=== PATIENT | male | born 1940 | race Caucasian/White ===

== ENCOUNTER 2017-03-04 13:16 | Inpatient (IN) | payer MEDICARE, BC ==
--- NOTE | ~2017-03-04 | CN ---
Consultation Report [facility] [address] [place]. [address] NAME: ROSIE GE : 42 STATUS : ADM IN [facility]#: [id number] AGE: 76 ADM/REG DATE : 03/05/17 MR#: [id number] REPORT SERV DATE: 03/06/17 DICTATED BY: ELEAZAR SANDHU DATE: 03/06/17 REPORT STATUS : Draft TRANSCRIBED BY: MODL DATE: 03/06/17 CARDIOLOGY CONSULTATION DATE OF CONSULTATION: 03/06/2017 INDICATION: 76-year-old male with exertional shortness of breath and abnormal stress test. HISTORY OF ILLNESS: Mr. Ge is a 76-year-old male with hypertension, hyperlipidemia, and history of tobacco use, who presented to the ER with increasing exertional shortness of breath and activity intolerance. He has had no angina. He has noticed some wheezing and a nonproductive cough. On arrival to the ER, he was noted to have some mild lower extremity edema. An echo was unremarkable with EF of 60%. He received diuresis and feels much improved. He underwent a nuclear stress test which demonstrated activity-induced exertional shortness of breath that was activity limiting with EKG changes suggestive of ischemia and inferior ischemia on myocardial perfusion imaging, intermediate risk. He is currently resting comfortably with no recurrent symptoms. REVIEW OF SYSTEMS: He denies palpitations or syncope. He has had no orthopnea/PND. He has a good appetite and stable weight. All others are negative. PAST MEDICAL HISTORY: 1. Hypertension. 2. Hyperlipidemia. 3. History of tobacco use, quit in 1991. 4. BPH. 5. Mild cognitive impairment. MEDICATIONS: 1. Valsartan/HCTZ 320/25 mg daily. 2. Flomax 0.4 mg daily. 3. Metoprolol-XL 50 mg daily. 4. Pravastatin 80 mg daily. 5. Aspirin 81 mg daily. 6. Aricept 10 mg at bedtime. 7. Proscar 5 mg daily. 8. Flonase nasal spray. ALLERGIES: INCLUDE PENICILLIN, WHICH CAUSES A RASH AND ITCHING. SOCIAL HISTORY: He is retired. He has a history of tobacco use and quit in 1991. He does not consume alcohol or use illegal drugs. FAMILY HISTORY: There is no significant premature CAD, cardiomyopathy, or sudden . Consultation Report [facility] [address] [place]. [address] NAME: ROSIE GE : 42 STATUS : ADM IN PAT#: [id number] AGE: 76 ADM/REG DATE : 03/05/17 MR#: [id number] REPORT SERV DATE: 03/06/17 DICTATED BY: ELEAZAR SANDHU DATE: 03/06/17 REPORT STATUS : Draft TRANSCRIBED BY: MODAdeola DATE: 03/06/17 PHYSICAL EXAMINATION: VITALS: Temp 97.2, Pulse 50, Respirations 16, BP 130/60. MENTAL STATUS: Awake, alert, and oriented x3. PSYCH: Euthymic, normal affect. GENERAL: Well appearing and in no distress. HEENT: Sclerae anicteric, mucous membranes moist and without lesions. NECK: No jugular venous distention. No hepatojugular reflux, carotid upstrokes 2+ and symmetric, there are no carotid or subclavian bruit. LUNGS: Mildly decreased breath sounds throughout with scant end-expiratory wheezes in the upper lung luz bilaterally. CARDIOVASCULAR: Regular with normal S1 and S2, no murmurs, no S3 or S4, no parasternal lift, PMI is nondisplaced and nonsustained. ABDOMEN: Soft and nontender. Bowel sounds positive and normoactive. No hepatomegaly, no masses, no abdominal bruit. PULSES: Radial and dorsalis pedis pulses 2+ and symmetric. EXTREMITIES: Warm and without edema. SKIN: No clubbing or cyanosis, no rashes or lesions. IMPRESSION: 1. Abnormal/intermediate risk stress test with inferior ischemia. 2. Exertional shortness of breath, anginal equivalent. 3. Hypertension. 4. Hyperlipidemia. 5. History of tobacco use. 6. Mild cognitive impairment. PLAN: Mr. Ge presented with symptoms of exertional shortness of breath and risk factors as outlined above suggestive of possible anginal equivalent. Stress test is intermediate risk with inferior ischemia. He is otherwise doing better after diuresis with resolved edema. His heart rate and blood pressure are under good control on good medical regimen including beta-lourdes, ARB, statin, and aspirin. I recommend continued medical therapy for now. I have recommended proceeding with coronary angiography and possible PCI for further evaluation. CONSENT: Risks and benefits of cardiac catheterization were discussed with Mr. Ge and his . Risks including bleeding, infection, vascular access trauma, allergic reaction to contrast dye, and a 1% chance of major complications as heart attack and stroke were all covered. After this, informed consent was obtained and he agreed to proceed. CHANDRAKANT/TOPHER Eleazar Cramer Consultation Report [address] [address] NAME: ROSIE GE : 42 STATUS : ADM IN PAT#: [id number] AGE: 76 ADM/REG DATE : 03/05/17 MR#: [id number] REPORT SERV DATE: 03/06/17 DICTATED BY: ELEAZAR SANDHU. DATE: 03/06/17 REPORT STATUS : Draft TRANSCRIBED BY: TOPHER DATE: 03/06/17 Gregg Sandhu / [id number] CC: Vishal Brantley MD
--- NOTE | ~2017-03-04 | DS ---
Discharge Summary [facility] [address] [place]. [address] NAME: ROSIE LARA : 42 STATUS : ADM IN [facility]#: [id number] AGE: 76 ADM/REG DATE : 03/05/17 MR#: [id number] REPORT SERV DATE: 03/07/17 DICTATED BY: VIDYA ARRINGTON DATE: 03/07/17 REPORT STATUS : Draft TRANSCRIBED BY: MODL DATE: 03/07/17 ADMISSION DATE: 03/04/2017 DISCHARGE DATE: 03/07/2017 FINAL HOSPITAL DIAGNOSES: 1. Coronary artery disease. 2. Dyspnea and edema, improved. 3. Dementia. 4. Hypertension. 5. Hyperlipidemia. 6. Benign prostatic hyperplasia. CONSULTATIONS: Cardiology, Dr. Alexander. PROCEDURES: 1. Cardiac catheterization showing a calcified lesion mid RCA, significant disease in left circumflex and diagonal, medical management recommended. 2. Nuclear medicine stress test done on the showing EKG changes suggestive of ischemia. Imaging demonstrating inferior ischemia, EF of 57%, intermediate risk stress test. 3. Echocardiogram done on the showing an estimated left ventricular ejection fraction of 60%, normal right ventricular size and function, mild diastolic dysfunction noted. CURRENT PHYSICAL FINDINGS AND HPI: Please see dictated H and P by Dr. Brantley. In brief, the patient is a 76-year-old male who presented with complaint of fatigue, shortness of breath, and lower extremity edema. No chest pain or palpitation. Vital signs at the time of admission, BP was 172/92. He was afebrile and has remained afebrile during his hospital stay. Pulse rates were in the 60s to 70s. Laboratory, ABG showed a sat of 92% on room air. Procalcitonin was less than 0.05. Initial BMP showed a slightly low potassium at 3.4 which corrected. His initial troponin was 0.03. BNP was 290.1. Lactate was normal. CBC was unremarkable except for a mild anemia approximately 10.5 and 32 on his H and H. Urinalysis was unremarkable. Blood cultures negative to-date. Chest x-ray showed mild vascular process, otherwise unremarkable. Initial EKG showed sinus rhythm, rate of 65. HOSPITAL COURSE: The patient was admitted under the Hospitalist Service. Echo and nuclear stress test were ordered. Home medications were reviewed and dosed appropriately. He was given several doses of IV Lasix and several doses of potassium, placed on the electrolyte protocol. Magnesium was checked and noted to be 2.2. Serial labs were followed with the results of the nuclear test noted. Cardiology was consulted. Recommended proceeding to cardiac cath which patient was agreeable. Post-catheterization, he was noted to have non- stentable disease, however, given his comorbid conditions, it was elected to treat medically which patient was in full agreement with. He was reassessed the following morning. He was symptom-free and felt stable for discharge with outpatient followup. DISPOSITION: As follows. He is discharged home. New prescriptions will be Imdur 30 mg one per day, Lasix 20 mg one per day p.r.n. edema, and potassium 10 one per day to take when he Discharge Summary [address] [place]. [address] NAME: ROSIE LARA : 42 STATUS : ADM IN [facility]#: [id number] AGE: 76 ADM/REG DATE : 03/05/17 MR#: [id number] REPORT SERV DATE: 03/07/17 DICTATED BY: VIDYA ARRINGTON DATE: 03/07/17 REPORT STATUS : Draft TRANSCRIBED BY: TOPHER DATE: 03/07/17 takes the Lasix. He will restart his Diovan/hydrochlorothiazide 320/25 one per day which may also help his edema. He will continue aspirin 81 one per day, Aricept 10 one per day, Proscar 5 one per day, Flonase nasal spray, Toprol-XL 50, Pravachol 80, Flomax 0.4, Mucinex p.r.n., Zantac p.r.n., Benadryl p.r.n., and Tylenol p.r.n. He has six to eight-week followup with Dr. Alexander. We will ask him to follow up with his PCP in 10 to 14 days to check his blood pressure and to recheck his electrolytes with his p.r.n. diuretic dosing and to recheck his cardiovascular symptoms. He has been given general recommendations as far as his day-to-day activities, fluid intake, low-sodium diet, and signs and symptoms to return including recurrent or worsening symptoms, new-onset chest pain, palpitations, or extreme edema, shortness of breath. DICTATED BY: Gregg HaleF/MODL Vidya Arrington M.D. / [id number] CC: Vidya Arrington M.D.
--- NOTE | ~2017-03-04 | HP ---
History And Physical [facility] [address] [place]. [address] NAME: ROSIE GE : 42 STATUS : REG ER PAT#: [id number] AGE: 76 ADM/REG DATE : 03/04/17 MR#: [id number] REPORT SERV DATE: 03/04/17 DICTATED BY: RENO ARENAS DATE: 03/04/17 REPORT STATUS : Draft TRANSCRIBED BY: MODL DATE: 03/04/17 DATE OF ADMISSION: 03/04/2017 HISTORY OF PRESENTING ILLNESS: Mr. Ge is a 76-year-old gentleman with a history of hypertension and dementia, who presented to the hospital with a complaint of acute shortness of breath. The patient states that he was feeling well until about two days ago when he started noticing exertional dyspnea. He states that his symptoms progressively worsened. The patient's son and , who were at bedside also corroborated the above story. The patient's son states that he is an EMT and then upon coming home from traveling, he noted that his dad's lower extremity was edematous compared to baseline. Given the findings of shortness of breath and new onset lower extremity edema, he decided to bring the patient to the emergency room for further evaluation. Upon presentation to the emergency room, chest x ray noted some vascular congestion. Workup in the emergency room noted a slightly elevated BNP of 290. For shortness of breath, the patient was given a dose of steroids, however family was hesitant about taking the patient home stating that they would not be able to take care of the patient at home. Hospitalist Service was therefore consulted to admit the patient under observation. At the time of my evaluation, the patient corroborated the above story. He states that other than the shortness of breath and lower extremity swelling, that he feels well. He denies any nausea, any vomiting. He denies any diarrhea or constipation. Denies any chest pain, lightheadedness, dizziness, or any syncopal activity. REVIEW OF SYSTEMS: 14-point review of system was performed. All systems were negative except as noted in the HPI. PAST MEDICAL HISTORY: Significant for: 1. Hypertension. 2. Hyperlipidemia. 3. Dementia. 4. TIA. 5. BPH. PAST SURGICAL HISTORY: 1. Appendectomy. 2. Arthroscopic knee surgery. FAMILY HISTORY: Significant for heart failure in mother. Father had lung cancer and liver cancer secondary to significant tobacco use and alcohol use. Also twin brother has a history of CVA with residual weakness. SOCIAL HISTORY: The patient is currently . Has a son. He and his lives with his son. He reports an [id number] smoking history, stating that he quit smoking in 1991. He reports occasional alcohol use stating that he drinks about beer twice a year mostly on social occasions. He denies any history of illicit drug use. ALLERGIES: THE PATIENT IS ALLERGIC TO PENICILLIN. History And Physical [address] [address] NAME: ROSIE GE : 42 STATUS : REG ER PAT#: [id number] AGE: 76 ADM/REG DATE : 03/04/17 MR#: [id number] REPORT SERV DATE: 03/04/17 DICTATED BY: RENO ARENAS DATE: 03/04/17 REPORT STATUS : Draft TRANSCRIBED BY: TOPHER DATE: 03/04/17 PHYSICAL EXAMINATION: VITAL SIGNS: On presentation, blood pressure 172/92 with a pulse of 76, respirations 22, O2 saturation 95% on room air. GENERAL: The patient is lying in bed, appears stated age in no acute distress. Speaking in full sentences. HEENT: Normocephalic, atraumatic. Extraocular motors intact. Moist oral mucosa. Anicteric sclerae. Pupils round and reactive to light and accommodation. NECK: Trachea midline and symmetric. No JVD noted. No thyromegaly present. No lymphadenopathy noted. CHEST: Nontender to palpation. No scars noted. CARDIOVASCULAR: Regular rate and rhythm. S1, S2. No murmurs, rubs, or gallops. LUNGS: Clear to auscultation bilaterally. Mild wheezing noted. ABDOMEN: Positive bowel sounds, nontender, nondistended. No masses palpated. EXTREMITIES: Trace to 1+ pitting edema noted mostly on dorsum of the foot with trace pitting edema noted up to the michelle. No cyanosis. No clubbing appreciated. NEURO: Alert and oriented x3. No focal deficits appreciated. LABORATORY DATA: WBC 7.3, hemoglobin 10.6, hematocrit 32.0 with a platelet of 121. Chemistry, sodium 143, potassium 3.4, chloride 110, bicarb 28, BUN 24, creatinine 1.13 with a glucose of 84. IMAGING: Chest x-ray, impression mild vascular process. ASSESSMENT AND PLAN: 1. Exertional dyspnea, unclear etiology given significant cardiac history in the family members. We will rule out cardiac etiology of his dyspnea. We will obtain a stress test. Also, order transthoracic echo as there is no echo system. Also, place the patient on diuresis and monitor. 2. Hypertension, uncontrolled. We will add lisinopril 10 mg p.o. daily to the patient's home regimen and monitor. 3. Hyperlipidemia. The patient is currently on statin therapy. We will continue current management. 4. Dementia, the patient is currently on donepezil. We will continue home management. 5. Benign prostatic hyperplasia. We will continue home medications. 6. Hypokalemia. We will replete. 7. Code status. The patient will be full code at this time. 8. DVT prophylaxis will be with Lovenox. ANGEL/TOPHER Reno Arenas MD / [id number]
[2017-03-04 12:33] LABS: ALLENS TEST Pos; BE (BASE EXCESS) -1.7 MEQ/L (0 +/- 2.5); HCO3 (ACTUAL BICARBONATE) 22.8 MEQ/L (23-27); HEMOBLOGIN CONTENT 11.1 G/DL (14-18); INSTRUMENT SERIAL # 8087; METHEMOGLOBIN 0.2 % (0-3); O2 CONTENT 14.2 VOL% (18-24); OPERATOR ID 35859; PCO2 (CO2 TENSION) 38 MMHG (35-45); PO2 (O2 TENSION) 64 MMHG (79-93); SAMPLE Arterial
[2017-03-04 12:52] LABS: BASOPHILS 0.1 %; BASOPHILS ABSOLUTE 0.01 10/3/uL (0.0-0.16); EOSINOPHILS 1.9 %; EOSINOPHILS ABSOLUTE 0.14 10/3/uL (0.0-0.53); HEMOGLOBIN 10.6 g/dL (13.6-17.8); IMMATURE GRANULOCYTES 0.1 %; IMMATURE GRANULOCYTES ABSOLUTE 0.01 10/3/uL (0.0-0.11); LYMPHOCYTES 17.2 %; LYMPHOCYTES ABSOLUTE 1.25 10/3/uL (0.67-4.30); MEAN CORPUS HGB CONC 33.1 g/dL (32.0-36.0); MEAN CORPUSCULAR HEMOGLOB 30.5 pg (26.0-34.0); MONOCYTES 5.5 %; NEUTROPHILS 75.2 %; NEUTROPHILS ABSOLUTE 5.47 10/3/uL (2.02-8.40); PLATELET COUNT 121 10/3/uL (150-400); RBC DISTRIBUTION WIDTH 13.8 % (12.0-16.0); RED CELL COUNT 3.48 10/6/uL (4.7-6.1); WHITE BLOOD CELLS 7.3 10/3/uL (4.5-10.5)
[2017-03-04 12:54] LABS: MANUAL DIFF NO %
[2017-03-04 13:06] LABS: BUN (BLOOD UREA NITROGEN) 24 MG/DL (6-23); CALCIUM, SERUM 8.3 MG/DL (8.5-10.4); CHLORIDE, SERUM 110 MMOL/L (96-112); CO2 (CARBON DIOXIDE) 28 MMOL/L (24-34); CREATININE 1.13 MG/DL (0.70-1.30); GFR AFRICAN AMERICAN 73 ML/MIN (>=60); GFR NON AFRICAN AMERICAN 63 ML/MIN (>=60); GLUCOSE, SERUM 84 MG/DL (60-99); POTASSIUM, SERUM 3.4 MMOL/L (3.5-5.3); SODIUM, SERUM 143 MMOL/L (135-148)
[2017-03-04 13:09] LABS: ASCORBIC ACID (UR NOT ORDER) NEG (NEG); BILIRUBIN, URINE NEGATIVE (NEG); ER URINALYSIS TAT 0 Hrs 07 Mins; KETONE, URINE NEGATIVE (NEG); LEUKOCYTE ESTERASE(NOT OR NEG (NEG); NITRITE (URINE) NEG (NEG); WBC (NOT ORDERED) (RFLEX) 4 (0-5)
[2017-03-04 13:47] LABS: PROCALCITONIN <0.05 ng/mL (<0.5)
[2017-03-04] MEDS ORDERED: PRAVACHOL80 MG PO (14:44)
[2017-03-04] MEDS ORDERED: PROSCAR5 PO (14:45)
[2017-03-04] MEDS ORDERED: TOPXL50 PO (14:45)
[2017-03-04] MEDS ORDERED: DIOVAN HCT320 MG/25 PO (14:45)
[2017-03-04] MEDS ORDERED: ARICEPT10 PO (14:46)
[2017-03-04] MEDS ORDERED: FLOMAX4 PO (14:46)
[2017-03-04] MEDS ORDERED: HALF81 PO (14:48)
[2017-03-04] MEDS ORDERED: MUCINEX DM MAX PO (14:49)
[2017-03-04] MEDS ORDERED: BEN25 PO (14:50)
[2017-03-04] MEDS ORDERED: ZANTAC OTC PO (14:50)
[2017-03-04] MEDS ORDERED: ACET500CAP PO (14:51)
[2017-03-04] MEDS ORDERED: FLONASE NAS (14:54)
[2017-03-05 06:30] LABS: BASOPHILS 0 %; EOSINOPHILS 0 %; HEMATOCRIT 32.4 % (40.0-51.0); HEMOGLOBIN 11.1 g/dL (13.6-17.8); IMMATURE GRANULOCYTES 0.3 %; IMMATURE GRANULOCYTES ABSOLUTE 0.02 10/3/uL (0.0-0.11); LYMPHOCYTES 10.2 %; MANUAL DIFF NO %; MEAN CORPUS HGB CONC 34.3 g/dL (32.0-36.0); MEAN CORPUSCULAR HEMOGLOB 31.2 pg (26.0-34.0); MEAN PLATELET VOLUME 10.9 fL (9.2-13.0); MONOCYTES 5.7 %; MONOCYTES ABSOLUTE 0.45 10/3/uL (0.21-1.20); NEUTROPHILS 83.8 %; NEUTROPHILS ABSOLUTE 6.59 10/3/uL (2.02-8.40); PLATELET COUNT 142 10/3/uL (150-400); RBC DISTRIBUTION WIDTH 13.4 % (12.0-16.0); RED CELL COUNT 3.56 10/6/uL (4.7-6.1); WHITE BLOOD CELLS 7.9 10/3/uL (4.5-10.5)
[2017-03-05 06:33] LABS: A/G RATIO 0.7 (0.7-1.9); ALBUMIN 3.1 G/DL (3.5-5.0); ALKALINE PHOSPHATASE 38 U/L (45-117); BUN (BLOOD UREA NITROGEN) 25 MG/DL (6-23); CALCIUM, SERUM 9.1 MG/DL (8.5-10.4); CHLORIDE, SERUM 103 MMOL/L (96-112); CO2 (CARBON DIOXIDE) 27 MMOL/L (24-34); CREATININE 1.25 MG/DL (0.70-1.30); GFR AFRICAN AMERICAN 65 ML/MIN (>=60); GFR NON AFRICAN AMERICAN 56 ML/MIN (>=60); GLOBULIN 4.3 G/DL (2.5-4.1); GLUCOSE, SERUM 116 MG/DL (60-99); POTASSIUM, SERUM 3.9 MMOL/L (3.5-5.3); SGOT(AST) 21 U/L (5-40); SGPT(ALT) 17 U/L (5-65); SODIUM, SERUM 138 MMOL/L (135-148); TOTAL BILIRUBIN 0.5 MG/DL (0-1.2); TOTAL PROTEIN 7.4 G/DL (6.0-8.5)
[2017-03-05 12:38] LABS: CPK (IF ELEVATED MB BANDS) 302 U/L (0-200); TROPONIN I 0.03 NG/ML (<0.05)
[2017-03-05 12:54] LABS: CK-MB 0.9 NG/ML
[2017-03-06 05:59] LABS: A/G RATIO 0.7 (0.7-1.9); ALBUMIN 2.8 G/DL (3.5-5.0); ALKALINE PHOSPHATASE 35 U/L (45-117); BUN (BLOOD UREA NITROGEN) 25 MG/DL (6-23); CALCIUM, SERUM 8.8 MG/DL (8.5-10.4); CHLORIDE, SERUM 104 MMOL/L (96-112); CO2 (CARBON DIOXIDE) 28 MMOL/L (24-34); CREATININE 1.05 MG/DL (0.70-1.30); GFR AFRICAN AMERICAN 80 ML/MIN (>=60); GFR NON AFRICAN AMERICAN 69 ML/MIN (>=60); GLOBULIN 3.8 G/DL (2.5-4.1); POTASSIUM, SERUM 3.4 MMOL/L (3.5-5.3); SGOT(AST) 26 U/L (5-40); SGPT(ALT) 18 U/L (5-65); SODIUM, SERUM 140 MMOL/L (135-148); TOTAL BILIRUBIN 0.5 MG/DL (0-1.2); TOTAL PROTEIN 6.6 G/DL (6.0-8.5)
[2017-03-06 06:05] LABS: GLUCOSE, SERUM 88 MG/DL (60-99)
[2017-03-06 06:50] LABS: BASOPHILS 0.2 %; EOSINOPHILS 2.6 %; EOSINOPHILS ABSOLUTE 0.1 10/3/uL (0.0-0.5); HEMATOCRIT 30.6 % (40.0-51.0); HEMOGLOBIN 10.6 g/dL (13.6-17.8); LYMPHOCYTES 29.9 %; LYMPHOCYTES ABSOLUTE 1.7 10/3/uL (0.7-4.3); MEAN CORPUS HGB CONC 34.5 g/dL (32.0-36.0); MEAN CORPUSCULAR HEMOGLOB 31.1 pg (26.0-34.0); MEAN CORPUSCULAR VOLUME 90.1 fL (80-100); MEAN PLATELET VOLUME 9.6 fL (6.8-10.8); MONOCYTES 8.2 %; MONOCYTES ABSOLUTE 0.5 10/3/uL (0.2-1.2); NEUTROPHILS 59.1 %; NEUTROPHILS ABSOLUTE 3.3 10/3/uL (2.0-8.4); PLATELET COUNT 109 10/3/uL (150-400); RBC DISTRIBUTION WIDTH 13.5 % (12.0-16.0); WHITE BLOOD CELLS 5.6 10/3/uL (4.5-10.5)
[2017-03-06 06:53] LABS: MANUAL DIFF NO %
[2017-03-07 05:47] LABS: CHLORIDE, SERUM 102 MMOL/L (96-112); CO2 (CARBON DIOXIDE) 26 MMOL/L (24-34); GFR AFRICAN AMERICAN 85 ML/MIN (>=60); GFR NON AFRICAN AMERICAN 73 ML/MIN (>=60); GLUCOSE, SERUM 90 MG/DL (60-99); POTASSIUM, SERUM 3.5 MMOL/L (3.5-5.3); SODIUM, SERUM 137 MMOL/L (135-148)
[2017-03-07 05:56] LABS: BUN (BLOOD UREA NITROGEN) 21 MG/DL (6-23)
[2017-03-07] MEDS ORDERED: L20 PO (09:47)
[2017-03-07] MEDS ORDERED: KDUR10 PO (09:47)
[2017-03-07] MEDS ORDERED: IMDUR30 PO (09:47)
== END 2017-03-07 11:02 | disposition home or self-care (01) | DRG 287 ==
LOC: ER 13:16 → 5NO 16:27
PROVIDERS: Emergency Medicine; Hospitalist; Internal Medicine; Internal Medicine Cardiovascular Disease
PROC: 4A023N7 Measurement of Cardiac Sampling and Pressure, Left Heart, Percutaneous Approach (ICD-10-PCS; principal; 2017-03-06)
PROC: B2111ZZ Fluoroscopy of Multiple Coronary Arteries using Low Osmolar Contrast (ICD-10-PCS; 2017-03-06)
DX: I25.10 Atherosclerotic heart disease of native coronary artery without angina pectoris (principal); R06.00 Dyspnea, unspecified; F03.90 Unspecified dementia, unspecified severity, without behavioral disturbance, psychotic disturbance, mood disturbance, and anxiety; I10 Essential (primary) hypertension; E78.5 Hyperlipidemia, unspecified; E87.6 Hypokalemia; N40.0 Benign prostatic hyperplasia without lower urinary tract symptoms; Z86.73 Personal history of transient ischemic attack (TIA), and cerebral infarction without residual deficits; Z87.891 Personal history of nicotine dependence; Z88.0 Allergy status to penicillin; Z79.82 Long term (current) use of aspirin
CPT/HCPCS: 36600; 71010; 78452; 80048; 80053; 81001; 82550; 82553; 82805; 83605; 83735; 83880; 84145; 84484; 85025; 85347; 87040; 87150; 93005; 93017; 93458; 94640; 96374; 99152; 99153; 99285; A9270-GY; A9502; C1725; C1769; C1887; C1894; C8929; J0360; J2250; J2930; J3010; Q9957; Q9967